=== PATIENT | male | born 1985 | race Caucasian/White ===

== ENCOUNTER 2025-05-14 11:09 | Emergency (ER) | payer SELFPAY ==
[~2025-05-14] VITALS: Ht 177.8 cm; Wt 74.0 kg
[2025-05-14 11:20] VITALS: TEMP 36.9
[2025-05-14 11:45] LABS: BASOPHILS % 0.2 % (0.0-2.0); EOSINOPHILS % 0.3 % (0.0-5.0); HEMATOCRIT. 41.9 % (42.0-52.0); HEMOGLOBIN. 14.2 g/dL (14.0-18.0); LYMPHOCYTES % 13.3 % (20.0-50.0); MEAN PLATELET VOLUME 7.6 fl (7.4-10.4); MONOCYTES % 9.4 % (2.0-8.0); NEUTROPHILS % 76.8 % (40.0-76.0); PLATELET 291 x1000/uL (130-400); RED BLOOD CELL COUNT 4.58 mill/uL (4.7-6.1); RED CELL DISTRIBUTION WIDTH 14.7 % (11.6-14.6)
[2025-05-14 11:55] LABS: INR 1.1
[2025-05-14 12:03] LABS: CREATININE 1.1 mg/dL (0.6-1.3); UREA NITROGEN BLOOD 11 mg/dL (9-23)
[2025-05-14] MEDS ORDERED: IBUP-2028 MT (12:27)
[2025-05-14] MEDS ORDERED: BO1 TP (12:27)
[2025-05-14] MEDS ORDERED: CEPH500C2 MT (12:27)
[2025-05-14 12:42] VITALS: O2SAT 100
[2025-05-14 12:46] VITALS: BP 116/72; PULSE 75; RESP 17
[2025-05-14] MEDS: KETOROLAC 30MG/ML VIAL IM ONE (12:46)
== END 2025-05-14 12:53 | disposition home or self-care (01) ==
LOC: ER 11:09
DX: M25.562 Pain in left knee (principal); L02.416 Cutaneous abscess of left lower limb; Z79.899 Other long term (current) drug therapy; Z98.890 Other specified postprocedural states
CPT/HCPCS: 80048; 83690; 85025; 85610; 87040; 36415; 73562; 96372; 99284; J1885; Z7610; A6449